=== PATIENT | male | born 1990 | race Caucasian/White ===

== ENCOUNTER 2016-08-31 15:15 | Emergency (ER) | payer MEDICAID ==
[~2016-08-31] VITALS: Ht 172.7 cm; Wt 100.0 kg
[~2016-08-31 15:15] MED LIST: ATIVAN 0.50.5 MG/TAB PO; BETA BLOCKER; CELEXA 20MG20 MG/TAB PO; LOPRESSOR 225 MG/TAB PO; NO HOME MEDICATIONS; PREDNISONE20 MG PO; PRILOSEC 20MG20 MG PO; PROTONIX 40MG T40 MG PO; SEROQUEL XR150 MG PO; ZITHROMAX 250M250 MG PO
[2016-08-31 15:18] VITALS: BP 142/91; TEMP 98.2
[2016-08-31 16:09] LABS: BASO # 0.1 (0.0-0.2); BASO % 0.6 % (0.0-2.0); EOS # 0.5 (0.0-0.7); EOS % 4.4 % (0-4.0); GRAN # 6.9 (1.4-6.5); GRAN % 64.9 % (42.2-75.2); HEMATOCRIT 45.8 % (42.0-52.0); LYMPH # 2.6 (1.2-3.4); LYMPH % 24.5 % (20.0-51.0); MEAN CELL VOLUME 85 fl (80.0-100.0); MEAN CORPUSCULAR HEMOGLOBIN 30 pg (27.0-31.0); MEAN CORPUSCULAR HGB CONC 35 g/dl (33.0-37.0); MONO # 0.6 (0.1-0.6); MONO % 5.4 % (1.7-9.3); PLATELET COUNT 254 K/mm3 (130-400); RED BLOOD COUNT 5.38 M/mm3 (4.20-5.60); REDCELL DISTRIBUTION WIDTH-CV 12.5 % (11.5-14.5); WHITE BLOOD COUNT 10.6 K/mm3 (4.8-10.8)
[2016-08-31 16:22] LABS: ADJUSTED CALCIUM 9.5 mg/dL (8.4-10.2); ALBUMIN 4.4 gm/dL (3.5-5.0); BILIRUBIN,TOTAL 0.9 mg/dL (0.0-1.0); CALCIUM 9.8 mg/dL (8.4-10.2); CREATININE, serum 0.95 mg/dL (0.66-1.25); POTASSIUM 3.7 mmol/L (3.4-5.0); TOTAL PROTEIN 7.6 gm/dL (6.4-8.2)
[2016-08-31] MEDS ORDERED: ANTIVERT 25MG25 MG PO (16:40)
[2016-08-31 17:04] VITALS: PULSE 76
== END 2016-08-31 17:02 | disposition home or self-care (01) ==
LOC: COL.ER 15:15
PROVIDERS: Nurse Practitioner
DX: R42 Dizziness and giddiness (principal); F41.9 Anxiety disorder, unspecified; F32.9 Major depressive disorder, single episode, unspecified; T43.226A Underdosing of selective serotonin reuptake inhibitors, initial encounter; Z91.128 Patient's intentional underdosing of medication regimen for other reason
CPT/HCPCS: J2405; J7030

== ENCOUNTER 2016-10-31 20:55 | Emergency (ER) | payer MEDICAID ==
[~2016-10-31] VITALS: Ht 172.7 cm; Wt 100.0 kg
[~2016-10-31 20:55] MED LIST changes: +ANTIVERT 25MG25 MG PO
[2016-10-31 20:58] VITALS: TEMP 98.3
[2016-10-31 21:57] LABS: BASO % 0.2 % (0.0-2.0); EOS # 0.2 (0.0-0.7); EOS % 1.8 % (0-4.0); GRAN # 6.7 (1.4-6.5); GRAN % 65.5 % (42.2-75.2); HEMATOCRIT 44.5 % (42.0-52.0); HEMOGLOBIN 15.1 g/dl (13.5-18.0); LYMPH # 2.8 (1.2-3.4); LYMPH % 27.1 % (20.0-51.0); MEAN CELL VOLUME 86 fl (80.0-100.0); MEAN CORPUSCULAR HEMOGLOBIN 29 pg (27.0-31.0); MEAN CORPUSCULAR HGB CONC 34 g/dl (33.0-37.0); MEAN PLATELET VOLUME 10.3 fl (7.4-10.4); MONO # 0.5 (0.1-0.6); MONO % 5.2 % (1.7-9.3); PLATELET COUNT 233 K/mm3 (130-400); RED BLOOD COUNT 5.15 M/mm3 (4.20-5.60); REDCELL DISTRIBUTION WIDTH-CV 12.2 % (11.5-14.5); WHITE BLOOD COUNT 10.2 K/mm3 (4.8-10.8)
[2016-10-31 22:07] LABS: AMPHETAMINE URINE NEGATIVE; BARBITURATES URINE NEGATIVE; BENZODIAZEPINES URINE NEGATIVE; BUPRENORPHINE URINE NEGATIVE; METHADONE URINE NEGATIVE; OPIATES URINE NEGATIVE; OXYCODONE URINE NEGATIVE; PHENCYCLIDINE URINE NEGATIVE; PROPOXYPHENE URINE NEGATIVE; THC CANNABINOIDS URINE NEGATIVE
[2016-10-31 22:19] LABS: ADJUSTED CALCIUM 9.8 mg/dL (8.4-10.2); ALANINE AMINOTRANSFERASE 45 U/L (21-72); ALBUMIN 4.3 gm/dL (3.5-5.0); ALKALINE PHOSPHATASE 77 U/L (50-136); ANION GAP 12 mmol/L (7-16); BILIRUBIN,TOTAL 0.8 mg/dL (0.0-1.0); BLOOD UREA NITROGEN 11 mg/dL (9-20); CARBON DIOXIDE 27 mmol/L (22-30); CHLORIDE 102 mmol/L (98-107); CREATININE, serum 0.92 mg/dL (0.66-1.25); GLUCOSE 99 mg/dL (74-106); POTASSIUM 3.7 mmol/L (3.4-5.0); SODIUM 142 mmol/L (137-145); TOTAL PROTEIN 7.5 gm/dL (6.4-8.2)
[2016-10-31 23:50] VITALS: BP 131/82; PULSE 103
== END 2016-10-31 23:50 | disposition home or self-care (01) ==
LOC: COL.ER 20:55
PROVIDERS: Family Medicine
DX: F33.2 Major depressive disorder, recurrent severe without psychotic features (principal)

== ENCOUNTER 2017-01-09 00:17 | Emergency (ER) | payer MEDICAID ==
[~2017-01-09] VITALS: Ht 172.7 cm; Wt 100.0 kg
[2017-01-09 00:19] VITALS: BP 145/90; PULSE 79; TEMP 98.2
== END 2017-01-09 00:51 | disposition home or self-care (01) ==
LOC: COL.ER 00:17
DX: S61.211A Laceration without foreign body of left index finger without damage to nail, initial encounter (principal); W26.0XXA Contact with knife, initial encounter; Y92.009 Unspecified place in unspecified non-institutional (private) residence as the place of occurrence of the external cause

== ENCOUNTER → 2017-02-16 | Outpatient (REF) | LOC: ZLAB.WCH 18:10 | DX: Z01.89 Encounter for other specified special examinations (principal) ==

== ENCOUNTER 2017-04-26 10:24 | Emergency (ER) | payer MEDICAID ==
[~2017-04-26] VITALS: Ht 172.7 cm; Wt 100.9 kg
[2017-04-26 11:01] VITALS: BP 157/98; PULSE 80; TEMP 98.9
[2017-04-26 12:00] LABS: AMPHETAMINE URINE NEGATIVE; BARBITURATES URINE NEGATIVE; BENZODIAZEPINES URINE NEGATIVE; BUPRENORPHINE URINE NEGATIVE; METHADONE URINE NEGATIVE; OPIATES URINE NEGATIVE; OXYCODONE URINE NEGATIVE; PHENCYCLIDINE URINE NEGATIVE; PROPOXYPHENE URINE NEGATIVE; THC CANNABINOIDS URINE NEGATIVE
[2017-04-26 12:01] LABS: BASO # 0.1 (0.0-0.2); BASO % 0.4 % (0.0-2.0); EOS # 0.2 (0.0-0.7); GRAN # 7.2 (1.4-6.5); GRAN % 61.2 % (42.2-75.2); HEMOGLOBIN 15.2 g/dl (13.5-18.0); LYMPH # 3.6 (1.2-3.4); LYMPH % 30.7 % (20.0-51.0); MEAN CELL VOLUME 86 fl (80.0-100.0); MEAN CORPUSCULAR HEMOGLOBIN 30 pg (27.0-31.0); MEAN CORPUSCULAR HGB CONC 35 g/dl (33.0-37.0); MEAN PLATELET VOLUME 10.9 fl (7.4-10.4); MONO # 0.6 (0.1-0.6); MONO % 5.4 % (1.7-9.3); PLATELET COUNT 248 K/mm3 (130-400); RED BLOOD COUNT 5.09 M/mm3 (4.20-5.60); REDCELL DISTRIBUTION WIDTH-CV 12.3 % (11.5-14.5); WHITE BLOOD COUNT 11.7 K/mm3 (4.8-10.8)
[2017-04-26 12:07] LABS: ADJUSTED CALCIUM 9.3 mg/dL (8.4-10.2); ALANINE AMINOTRANSFERASE 47 U/L (21-72); ALBUMIN 4.6 gm/dL (3.5-5.0); ALKALINE PHOSPHATASE 66 U/L (50-136); ANION GAP 12 mmol/L (7-16); BILIRUBIN,TOTAL 0.7 mg/dL (0.0-1.0); BLOOD UREA NITROGEN 10 mg/dL (9-20); CALCIUM 9.8 mg/dL (8.4-10.2); CARBON DIOXIDE 27 mmol/L (22-30); CHLORIDE 102 mmol/L (98-107); CREATININE, serum 0.86 mg/dL (0.66-1.25); GLUCOSE 90 mg/dL (74-106); POTASSIUM 3.8 mmol/L (3.4-5.0); SODIUM 141 mmol/L (137-145); TOTAL PROTEIN 7.5 gm/dL (6.4-8.2)
[2017-04-26 12:11] LABS: ACETAMINOPHEN < 10 ug/mL (10-30); SALICYLATE < 1.0 mg/dL
[2017-04-26] MEDS ORDERED: ATIVAN 0.50.5 MG/TAB PO (14:21)
== END 2017-04-26 14:32 | disposition home or self-care (01) ==
LOC: COL.ER 10:24
PROVIDERS: Physician Assistant
DX: R45.1 Restlessness and agitation (principal); R45.4 Irritability and anger; F31.9 Bipolar disorder, unspecified

== ENCOUNTER 2017-05-19 18:20 | Emergency (ER) | payer MEDICAID ==
[~2017-05-19] VITALS: Ht 172.7 cm; Wt 100.0 kg
[2017-05-19 18:26] VITALS: BP 143/88; PULSE 74; TEMP 98.7
== END 2017-05-19 20:13 | disposition home or self-care (01) ==
LOC: COL.ER 18:20
DX: F41.9 Anxiety disorder, unspecified (principal); F31.9 Bipolar disorder, unspecified; Z90.89 Acquired absence of other organs; Z96.22 Myringotomy tube(s) status; Z98.890 Other specified postprocedural states

== ENCOUNTER 2017-08-06 20:36 | Emergency (ER) | payer MEDICAID ==
[~2017-08-06] VITALS: Ht 172.7 cm; Wt 100.0 kg
[2017-08-06 20:39] VITALS: BP 150/85; TEMP 98.3
[2017-08-06 21:21] LABS: BASO # 0.1 (0.0-0.2); BASO % 0.4 % (0.0-2.0); EOS # 0.3 (0.0-0.7); EOS % 2.7 % (0-4.0); GRAN # 7.9 (1.4-6.5); GRAN % 63.5 % (42.2-75.2); HEMATOCRIT 44.5 % (42.0-52.0); HEMOGLOBIN 15.5 g/dl (13.5-18.0); LYMPH # 3.4 (1.2-3.4); LYMPH % 27.7 % (20.0-51.0); MEAN CELL VOLUME 87 fl (80.0-100.0); MEAN CORPUSCULAR HEMOGLOBIN 30 pg (27.0-31.0); MEAN CORPUSCULAR HGB CONC 35 g/dl (33.0-37.0); MEAN PLATELET VOLUME 10.4 fl (7.4-10.4); MONO # 0.7 (0.1-0.6); MONO % 5.5 % (1.7-9.3); PLATELET COUNT 239 K/mm3 (130-400); RED BLOOD COUNT 5.14 M/mm3 (4.20-5.60); REDCELL DISTRIBUTION WIDTH-CV 12.2 % (11.5-14.5)
[2017-08-06 21:30] LABS: ALBUMIN 4.5 gm/dL (3.5-5.0); BILIRUBIN,TOTAL 0.6 mg/dL (0.0-1.0); CALCIUM 9.6 mg/dL (8.4-10.2); CREATININE, serum 0.99 mg/dL (0.66-1.25); POTASSIUM 3.4 mmol/L (3.4-5.0); TOTAL PROTEIN 7.2 gm/dL (6.4-8.2)
[2017-08-06 22:19] VITALS: PULSE 75
== END 2017-08-06 22:22 | disposition home or self-care (01) ==
LOC: COL.ER 20:36
PROVIDERS: Physician Assistant
DX: R10.12 Left upper quadrant pain (principal); F32.9 Major depressive disorder, single episode, unspecified; Z90.89 Acquired absence of other organs

== ENCOUNTER 2018-08-16 21:33 | Emergency (ER) | payer MEDICAID ==
[~2018-08-16] VITALS: Ht 172.7 cm; Wt 97.7 kg
[2018-08-16 21:40] VITALS: TEMP 98.5
[2018-08-16] MEDS ORDERED: ATARAX 25MG25 MG/TAB PO (22:26)
[2018-08-16] MEDS ORDERED: NORVASC 5MG5 MG/TAB PO (22:26)
[2018-08-16] MEDS ORDERED: CYMBALTA 60MG60 MG PO (22:26)
[2018-08-16 22:32] LABS: BASO # 0.1 (0.0-0.2); BASO % 0.5 % (0.0-2.0); EOS # 0.3 (0.0-0.7); EOS % 2.4 % (0-4.0); GRAN # 6.3 (1.4-6.5); HEMATOCRIT 43.7 % (42.0-52.0); LYMPH # 3.4 (1.2-3.4); MEAN CELL VOLUME 88 fl (80.0-100.0); MEAN CORPUSCULAR HEMOGLOBIN 30 pg (27.0-31.0); MEAN CORPUSCULAR HGB CONC 34 g/dl (33.0-37.0); MEAN PLATELET VOLUME 10.1 fl (7.4-10.4); MONO # 0.6 (0.1-0.6); MONO % 5.9 % (1.7-9.3); PLATELET COUNT 250 K/mm3 (130-400); RED BLOOD COUNT 4.98 M/mm3 (4.20-5.60); REDCELL DISTRIBUTION WIDTH-CV 12.2 % (11.5-14.5)
[2018-08-16 22:50] LABS: ALANINE AMINOTRANSFERASE 35 U/L (21-72); ALBUMIN 4.3 gm/dL (3.5-5.0); ALKALINE PHOSPHATASE 65 U/L (50-136); ANION GAP 6 mmol/L (7-16); AST,SGOT 23 U/L (15-37); BILIRUBIN,TOTAL 0.5 mg/dL (0.0-1.0); BLOOD UREA NITROGEN 13 mg/dL (9-20); CALCIUM 9.8 mg/dL (8.4-10.2); CARBON DIOXIDE 30 mmol/L (22-30); CHLORIDE 106 mmol/L (98-107); CREATINE KINASE 93 U/L (55-170); CREATININE, serum 0.88 mg/dL (0.66-1.25); GLUCOSE 110 mg/dL (74-106); POTASSIUM 3.8 mmol/L (3.4-5.0); SODIUM 142 mmol/L (137-145); TOTAL PROTEIN 7.2 gm/dL (6.4-8.2)
[2018-08-16 23:06] LABS: TROPONIN-I < 0.012 ng/mL (0.000-0.034)
[2018-08-16 23:45] VITALS: BP 137/101; PULSE 74
== END 2018-08-17 | disposition home or self-care (01) ==
LOC: COL.ER 21:33
PROVIDERS: Emergency Medicine
DX: F41.9 Anxiety disorder, unspecified (principal); R07.89 Other chest pain; I10 Essential (primary) hypertension; Z90.89 Acquired absence of other organs; F17.210 Nicotine dependence, cigarettes, uncomplicated

== ENCOUNTER 2018-10-11 00:21 | Emergency (ER) | payer MEDICAID ==
[~2018-10-11] VITALS: Ht 172.7 cm; Wt 102.3 kg
[~2018-10-11 00:21] MED LIST changes: +ATARAX 25MG25 MG/TAB PO; +CYMBALTA 60MG60 MG PO; +NORVASC 5MG5 MG/TAB PO
[2018-10-11 00:23] VITALS: TEMP 97.6
[2018-10-11] MEDS ORDERED: CELEXA 20MG20 MG/TAB PO (00:26)
[2018-10-11] MEDS ORDERED: VALIUM 5MG T5 MG/TAB PO (00:26)
[2018-10-11] MEDS ORDERED: REMERON 15M15 MG/TA1 PO (00:27)
[2018-10-11 01:01] LABS: BASO % 0.2 % (0.0-2.0); EOS # 0.2 (0.0-0.7); EOS % 1.9 % (0-4.0); GRAN # 9.4 (1.4-6.5); GRAN % 72.6 % (42.2-75.2); HEMATOCRIT 46.8 % (42.0-52.0); HEMOGLOBIN 16.1 g/dl (13.5-18.0); LYMPH # 2.7 (1.2-3.4); LYMPH % 20.9 % (20.0-51.0); MEAN CELL VOLUME 87 fl (80.0-100.0); MEAN CORPUSCULAR HEMOGLOBIN 30 pg (27.0-31.0); MEAN CORPUSCULAR HGB CONC 34 g/dl (33.0-37.0); MEAN PLATELET VOLUME 10.4 fl (7.4-10.4); MONO # 0.5 (0.1-0.6); MONO % 4.1 % (1.7-9.3); PLATELET COUNT 246 K/mm3 (130-400); RED BLOOD COUNT 5.38 M/mm3 (4.20-5.60); REDCELL DISTRIBUTION WIDTH-CV 12.1 % (11.5-14.5)
[2018-10-11 01:13] LABS: ALBUMIN 4.8 gm/dL (3.5-5.0); BILIRUBIN,TOTAL 0.6 mg/dL (0.0-1.0); C-REACTIVE PROTEIN 0.6 mg/dL (0.0-0.9); CALCIUM 9.8 mg/dL (8.4-10.2); CREATININE, serum 1.05 mg/dL (0.66-1.25); POTASSIUM 3.7 mmol/L (3.4-5.0); TOTAL PROTEIN 8.1 gm/dL (6.4-8.2)
[2018-10-11 01:42] LABS: COLLECTION METHOD CLEAN CATCH
[2018-10-11 01:48] LABS: MUCOUS Present /lpf; PH 7 (5-8); SQUAMOUS EPITHELIAL None Seen /hpf; URINE APPEARANCE Clear; URINE BACTERIA None Seen /hpf; URINE BILIRUBIN Negative (NEGATIVE); URINE BLOOD Negative (NEGATIVE); URINE COLOR Yellow; URINE GLUCOSE Negative (NEGATIVE); URINE KETONE Trace (NEGATIVE); URINE LEUKOCYTE ESTERASE Negative (NEGATIVE); URINE NITRATE Negative (NEGATIVE); URINE PROTEIN(semi-quant) Negative (NEGATIVE); URINE RBC 0-2 /hpf; URINE UROBILINOGEN Negative (NEGATIVE)
[2018-10-11] MEDS ORDERED: ZOFRAN 4MG T4 MG/TAB PO (02:29)
[2018-10-11 02:44] VITALS: BP 124/82; PULSE 74
== END 2018-10-11 03:03 | disposition home or self-care (01) ==
LOC: COL.ER 00:21
PROVIDERS: Emergency Medicine
DX: R10.13 Epigastric pain (principal); R11.0 Nausea; R10.33 Periumbilical pain; F32.9 Major depressive disorder, single episode, unspecified; F41.9 Anxiety disorder, unspecified; F17.210 Nicotine dependence, cigarettes, uncomplicated; Z90.89 Acquired absence of other organs
CPT/HCPCS: J2405; J7030

== ENCOUNTER 2018-12-20 17:38 | Emergency (ER) | payer MEDICAID ==
[~2018-12-20] VITALS: Ht 172.7 cm; Wt 102.3 kg
[~2018-12-20 17:38] MED LIST changes: +REMERON 15M15 MG/TA1 PO; +VALIUM 5MG T5 MG/TAB PO; +ZOFRAN 4MG T4 MG/TAB PO
[2018-12-20 18:13] VITALS: TEMP 99.5
[2018-12-20 19:08] LABS: COLLECTION METHOD CLEAN CATCH
[2018-12-20 19:22] LABS: MUCOUS Present /lpf; PH 6 (5-8); SQUAMOUS EPITHELIAL None Seen /hpf; URINE APPEARANCE Clear; URINE BACTERIA None Seen /hpf; URINE BILIRUBIN Negative (NEGATIVE); URINE BLOOD 1+ (NEGATIVE); URINE COLOR Yellow; URINE GLUCOSE Negative (NEGATIVE); URINE KETONE Negative (NEGATIVE); URINE LEUKOCYTE ESTERASE Negative (NEGATIVE); URINE NITRATE Negative (NEGATIVE); URINE PROTEIN(semi-quant) 1+ (NEGATIVE); URINE UROBILINOGEN Negative (NEGATIVE)
[2018-12-20 19:37] LABS: TRICYCLIC ANTIDEPRESS URINE NEGATIVE
[2018-12-20 20:12] LABS: BASO # 0.1 (0.0-0.2); BASO % 0.6 % (0.0-2.0); EOS # 0.3 (0.0-0.7); EOS % 2.6 % (0-4.0); GRAN % 62.2 % (42.2-75.2); HEMATOCRIT 47.3 % (42.0-52.0); HEMOGLOBIN 16.2 g/dl (13.5-18.0); LYMPH # 3.3 (1.2-3.4); LYMPH % 28.9 % (20.0-51.0); MEAN CELL VOLUME 86 fl (80.0-100.0); MEAN CORPUSCULAR HEMOGLOBIN 30 pg (27.0-31.0); MEAN CORPUSCULAR HGB CONC 34 g/dl (33.0-37.0); MEAN PLATELET VOLUME 10.4 fl (7.4-10.4); MONO # 0.6 (0.1-0.6); MONO % 5.4 % (1.7-9.3); PLATELET COUNT 276 K/mm3 (130-400); RED BLOOD COUNT 5.48 M/mm3 (4.20-5.60)
[2018-12-20 20:15] LABS: ALANINE AMINOTRANSFERASE 28 U/L (21-72); ALBUMIN 4.8 gm/dL (3.5-5.0); ALKALINE PHOSPHATASE 81 U/L (50-136); ANION GAP 12 mmol/L (7-16); AST,SGOT 26 U/L (15-37); BILIRUBIN,TOTAL 0.7 mg/dL (0.0-1.0); BLOOD UREA NITROGEN 13 mg/dL (9-20); CARBON DIOXIDE 25 mmol/L (22-30); CHLORIDE 104 mmol/L (98-107); CREATININE, serum 0.84 (0.66-1.25); GLUCOSE 94 mg/dL (74-106); POTASSIUM 3.8 mmol/L (3.4-5.0); SODIUM 142 mmol/L (137-145); TOTAL PROTEIN 8.4 gm/dL (6.4-8.2)
[2018-12-20 20:17] LABS: ACETAMINOPHEN < 10 ug/mL (10-30); ALCOHOL(ethanol),MEDICAL < 10 mg/dL; SALICYLATE < 1.0 mg/dL
[2018-12-20 22:30] VITALS: BP 142/97
[2018-12-20 23:38] VITALS: PULSE 80
== END 2018-12-20 23:36 ==
LOC: COL.ER 17:38
PROVIDERS: Physician Assistant
DX: R45.851 Suicidal ideations (principal); F32.9 Major depressive disorder, single episode, unspecified; F43.10 Post-traumatic stress disorder, unspecified; F41.9 Anxiety disorder, unspecified; Z87.891 Personal history of nicotine dependence

== ENCOUNTER 2019-03-20 16:41 | Emergency (ER) | payer MEDICAID ==
[~2019-03-20] VITALS: Ht 175.3 cm; Wt 104.5 kg
[2019-03-20 16:46] VITALS: TEMP 98.2
[2019-03-20] MEDS ORDERED: NORVASC2.5 MG (16:46)
[2019-03-20 20:06] LABS: BASO # 0.1 (0.0-0.2); BASO % 0.4 % (0.0-2.0); EOS # 0.4 (0.0-0.7); EOS % 3.5 % (0-4.0); GRAN # 8.3 (1.4-6.5); GRAN % 65.3 % (42.2-75.2); HEMATOCRIT 45.7 % (42.0-52.0); HEMOGLOBIN 15.5 g/dl (13.5-18.0); LYMPH # 3.2 (1.2-3.4); LYMPH % 25.4 % (20.0-51.0); MEAN CELL VOLUME 87 fl (80.0-100.0); MEAN CORPUSCULAR HEMOGLOBIN 30 pg (27.0-31.0); MEAN CORPUSCULAR HGB CONC 34 g/dl (33.0-37.0); MEAN PLATELET VOLUME 10.2 fl (7.4-10.4); MONO # 0.6 (0.1-0.6); MONO % 5.1 % (1.7-9.3); PLATELET COUNT 275 K/mm3 (130-400); RED BLOOD COUNT 5.23 M/mm3 (4.20-5.60); REDCELL DISTRIBUTION WIDTH-CV 12.4 % (11.5-14.5)
[2019-03-20 20:17] LABS: ALANINE AMINOTRANSFERASE 33 U/L (21-72); ALBUMIN 4.5 gm/dL (3.5-5.0); ALKALINE PHOSPHATASE 69 U/L (50-136); ANION GAP 9 mmol/L (7-16); AST,SGOT 29 U/L (15-37); BILIRUBIN,TOTAL 0.6 mg/dL (0.0-1.0); BLOOD UREA NITROGEN 11 mg/dL (9-20); CALCIUM 9.7 mg/dL (8.4-10.2); CARBON DIOXIDE 28 mmol/L (22-30); CHLORIDE 103 mmol/L (98-107); CREATINE KINASE 67 U/L (55-170); CREATININE, serum 0.77 (0.66-1.25); GLUCOSE 84 mg/dL (74-106); POTASSIUM 4.1 mmol/L (3.4-5.0); SODIUM 140 mmol/L (137-145); TOTAL PROTEIN 7.7 gm/dL (6.4-8.2)
[2019-03-20 20:32] LABS: TROPONIN-I < 0.012 ng/mL (0.000-0.035)
[2019-03-20] MEDS ORDERED: PREDNISONE20 MG PO (21:29)
[2019-03-20 22:04] VITALS: BP 137/101; PULSE 80
== END 2019-03-20 22:04 | disposition home or self-care (01) ==
LOC: COL.ER 16:41
PROVIDERS: Emergency Medicine
DX: R09.1 Pleurisy (principal); F32.9 Major depressive disorder, single episode, unspecified; I10 Essential (primary) hypertension; F17.210 Nicotine dependence, cigarettes, uncomplicated; Z90.89 Acquired absence of other organs
CPT/HCPCS: J7030; J7512

== ENCOUNTER 2019-09-16 17:33 | Emergency (ER) | payer MEDICAID ==
[~2019-09-16] VITALS: Ht 172.7 cm; Wt 104.5 kg
[~2019-09-16 17:33] MED LIST changes: +NORVASC2.5 MG
[2019-09-16 17:53] VITALS: BP 138/97; TEMP 98.1
[2019-09-16] MEDS ORDERED: PERIDEX (CHLOR480 ML MM (19:15)
[2019-09-16] MEDS ORDERED: FLAGYL500 MG PO (19:17)
[2019-09-16] MEDS ORDERED: AMOXICILLIN875 MG PO (19:17)
[2019-09-16 19:30] VITALS: PULSE 66
== END 2019-09-16 19:30 | disposition home or self-care (01) ==
LOC: COL.ER 17:33
DX: S02.5XXA Fracture of tooth (traumatic), initial encounter for closed fracture (principal); K02.9 Dental caries, unspecified; K05.10 Chronic gingivitis, plaque induced; I10 Essential (primary) hypertension; F41.8 Other specified anxiety disorders; Z87.891 Personal history of nicotine dependence; X58.XXXA Exposure to other specified factors, initial encounter

== ENCOUNTER 2019-10-25 16:50 | Emergency (ER) | payer MEDICAID ==
[~2019-10-25] VITALS: Ht 172.7 cm; Wt 104.5 kg
[~2019-10-25 16:50] MED LIST changes: +AMOXICILLIN875 MG PO; +FLAGYL500 MG PO; +PERIDEX (CHLOR480 ML MM
[2019-10-25 17:00] VITALS: BP 151/97; TEMP 98
[2019-10-25 18:00] VITALS: PULSE 90
== END 2019-10-25 18:00 | disposition home or self-care (01) ==
LOC: COL.ER 16:50
DX: R06.02 Shortness of breath (principal); F41.9 Anxiety disorder, unspecified; J45.909 Unspecified asthma, uncomplicated

== ENCOUNTER 2019-12-25 21:57 | Emergency (ER) | payer MEDICAID ==
[~2019-12-25] VITALS: Ht 172.7 cm; Wt 104.5 kg
[2019-12-25 22:16] VITALS: BP 110/74; PULSE 84; TEMP 97.6
== END 2019-12-25 22:40 | disposition left against medical advice (07) ==
LOC: COL.ER 21:57
DX: R10.32 Left lower quadrant pain (principal); F31.9 Bipolar disorder, unspecified; F17.210 Nicotine dependence, cigarettes, uncomplicated

== ENCOUNTER 2021-03-01 22:53 | Emergency (ER) | payer MEDICAID ==
[~2021-03-01] VITALS: Ht 172.7 cm; Wt 97.7 kg
[2021-03-02 01:15] VITALS: BP 145/88; PULSE 95; TEMP 99.8
== END 2021-03-02 01:15 | disposition home or self-care (01) ==
LOC: COL.ER 22:53
DX: U07.1 COVID-19 (principal)

== ENCOUNTER 2021-06-04 00:17 | Emergency (ER) | payer MEDICAID ==
[~2021-06-04] VITALS: Ht 172.7 cm; Wt 97.7 kg
[2021-06-04 00:21] VITALS: BP 143/96; PULSE 89; TEMP 98.3
[2021-06-04] MEDS ORDERED: AMOXICILLIN875 MG PO (00:36)
== END 2021-06-04 00:42 | disposition home or self-care (01) ==
LOC: COL.ER 00:17
DX: H66.92 Otitis media, unspecified, left ear (principal); Z96.22 Myringotomy tube(s) status

== ENCOUNTER 2022-09-23 18:58 | Emergency (ER) | payer MEDICAID ==
[~2022-09-23] VITALS: Ht 172.7 cm; Wt 97.7 kg
[2022-09-23 19:22] VITALS: TEMP 98.1
[2022-09-23] MEDS ORDERED: AMOXICILLIN 8751 TAB PO (19:24)
[2022-09-23 19:43] VITALS: BP 149/115; PULSE 85
== END 2022-09-23 19:43 | disposition home or self-care (01) ==
LOC: COL.ER 18:58
DX: K02.9 Dental caries, unspecified (principal); Z28.310 Unvaccinated for COVID-19

== ENCOUNTER 2023-09-07 01:29 | Emergency (ER) | payer MEDICAID ==
[~2023-09-07] VITALS: Ht 172.7 cm; Wt 97.7 kg
[~2023-09-07 01:29] MED LIST changes: +AMOXICILLIN 8751 TAB PO
[2023-09-07 01:39] VITALS: TEMP 97.8
[2023-09-07 03:05] LABS: COLLECTION METHOD CLEAN CATCH
[2023-09-07 03:13] LABS: BASO % 0.4 % (0.0-2.0); EOS # 0.1 K/mm3 (0.0-0.7); GRAN # 6.4 K/mm3 (1.4-6.5); GRAN % 66.9 % (42.2-75.2); HEMATOCRIT 44.4 % (42.0-52.0); HEMOGLOBIN 16.2 g/dl (13.5-18.0); LYMPH # 2.5 K/mm3 (1.2-3.4); LYMPH % 25.6 % (20.0-51.0); MEAN CELL VOLUME 84 fl (80.0-100.0); MEAN CORPUSCULAR HEMOGLOBIN 31 pg (27-31); MEAN CORPUSCULAR HGB CONC 37 g/dl (33.0-37.0); MEAN PLATELET VOLUME 10.4 fl (7.4-10.4); MONO # 0.6 K/mm3 (0.1-0.6); MONO % 5.9 % (1.7-9.3); PLATELET COUNT 237 K/mm3 (130-400); RED BLOOD COUNT 5.27 M/mm3 (4.20-5.60); REDCELL DISTRIBUTION WIDTH-CV 11.9 % (11.5-14.5)
[2023-09-07 03:23] LABS: PH 6.5 (5.0-8.5); URINE APPEARANCE Clear (CLEAR/HAZY); URINE BLOOD TRACE-INTACT (NEGATIVE); URINE COLOR Yellow (YELLOW); URINE GLUCOSE Negative (NEGATIVE); URINE KETONE Negative (NEGATIVE); URINE NITRATE Negative (NEGATIVE); URINE PROTEIN(semi-quant) Negative (NEGATIVE)
[2023-09-07 03:24] LABS: SQUAMOUS EPITHELIAL None Seen /hpf (0-10); URINE BACTERIA Rare /hpf (NONE SEEN); URINE RBC None Seen /hpf (0-2)
[2023-09-07 03:25] LABS: TRICYCLIC ANTIDEPRESS URINE NEGATIVE (NEGATIVE)
[2023-09-07 03:28] LABS: ACETAMINOPHEN < 7.0 ug/mL (10-30); ALANINE AMINOTRANSFERASE 31 U/L (0-55); ALBUMIN 4.3 gm/dL (3.5-5.0); ALCOHOL(ethanol),MEDICAL < 10 mg/dL (0-10); ALKALINE PHOSPHATASE 73 U/L (40-150); ANION GAP 11 mmol/L (7-16); AST,SGOT 21 U/L (5-34); BILIRUBIN,TOTAL 0.7 mg/dL (0.2-1.2); BLOOD UREA NITROGEN 6 mg/dL (9-21); CALCIUM 9.6 mg/dL (8.4-10.2); CARBON DIOXIDE 24 mmol/L (22-29); CHLORIDE 105 mmol/L (98-107); CREATININE, serum 0.87 mg/dL (0.72-1.25); GLUCOSE 109 mg/dL (70-99); POTASSIUM 3.3 mmol/L (3.5-4.5); SALICYLATE < 5.0 mg/dL (15.0-30.0); SODIUM 140 mmol/L (136-145); TOTAL PROTEIN 7.4 gm/dL (6.2-8.1)
[2023-09-07 08:40] VITALS: BP 160/101; PULSE 73
== END 2023-09-07 08:40 | disposition home or self-care (01) ==
LOC: COL.ER 01:29
PROVIDERS: Nurse Practitioner
DX: F43.20 Adjustment disorder, unspecified (principal)

== ENCOUNTER 2023-11-16 23:23 | Emergency (ER) | payer MEDICAID ==
[~2023-11-16] VITALS: Ht 172.7 cm; Wt 97.7 kg
[2023-11-16 23:30] VITALS: TEMP 98.4
[2023-11-17 00:32] LABS: TRICYCLIC ANTIDEPRESS URINE NEGATIVE (NEGATIVE)
[2023-11-17 01:40] VITALS: BP 145/100; PULSE 88
== END 2023-11-17 01:39 | disposition home or self-care (01) ==
LOC: COL.ER 23:23
PROVIDERS: Personal Emergency Response Attendant
DX: R40.0 Somnolence (principal); I10 Essential (primary) hypertension